=== PATIENT | female | born 1950 | race Caucasian/White ===

== ENCOUNTER 2019-04-28 23:41 | Emergency (ER) | payer BC, MEDICARE ==
--- NOTE | 2019-04-29 00:25 | EDM.PDOC ---
ED HPI GENERAL MEDICAL PROBLEM - General Chief Complaint: General Stated Complaint: JAW PAIN Time Seen by Provider: 04/29/19 00:21 Source of Information: Reports: Patient History Limitations: Reports: Altered Mental Status - History of Present Illness INITIAL COMMENTS - FREE TEXT/NARRATIVE: Halley is a 69 year old female who presents to the ED via [facility] following a fall. She reports she was walking and tripped on uneven ground outside of her home. Fall was from standing level. She reports she fell flat on her jaw and had instant jaw pain. Denies any LOC. Does report she lost 3 teeth. Has lost numerous teeth in the past as well. Reports she has an upper plate. [place] [employer] was on scene. GCS 15. Patient is not on any anticoagulants. She denies any dizziness, headache, weakness, numbness, tingling, chest pain, abdominal pain, extremity pain. She reports she has no complaints other than jaw pain. She is talking without difficulty and very restless. She does report methamphetamine use about 5 hours ago and has also been drinking alcohol. She reports she has had 2.5 drinks, but her "cups are very large." She is intoxicated and very restless. Onset: Today, Sudden Duration: Constant Location: Reports: Face (jaw) Severity: Severe Associated Symptoms: Denies: Confusion, Chest Pain, Cough, cough w sputum, Diaphoresis, Fever/Chills, Headaches, Loss of Appetite, Malaise, Nausea/Vomiting , Rash, Seizure, Shortness of Breath, Syncope, Weakness Left Jaw Pain Score (Numeric/FACES): 8 - Related Data Allergies Allergy/AdvReac Type Severity Reaction Status Date / Time Sulfa (Sulfonamide Allergy Hives Verified 04/29/19 00:20 Antibiotics) Home Meds: Home Meds Amitriptyline [Elavil] 50 mg PO BEDTIME 02/14/14 [History] Aspirin [Halfprin] 81 mg PO DAILY 02/14/14 [History] Cholecalciferol (Vitamin D3) [Vitamin D] 2,000 unit PO DAILY 02/14/14 [History] Cyclobenzaprine [Flexeril] 10 mg PO BEDTIME 02/14/14 [History] Esomeprazole [NexIUM] 40 mg PO DAILY 02/14/14 [History] Levothyroxine Sodium [Synthroid] 150 mcg PO DAILY 02/14/14 [History] Metoprolol Succinate 25 mg PO DAILY 02/14/14 [History] PARoxetine [Paxil CR] 37.5 mg PO DAILY 02/14/14 [History] atorvaSTATin [Lipitor] 40 mg PO DAILY 02/14/14 [History] Past Medical History HEENT History: Reports: Other (See Below) (Missing teeth) Cardiovascular History: Reports: CAD, High Cholesterol, Hypertension, [place] Respiratory History: Reports: COPD Gastrointestinal History: Reports: GERD : 4 Psychiatric History: Reports: Addiction, Anxiety, Depression - Past Surgical History Cardiovascular Surgical History: Reports: Carotid Stents GI Surgical History: Reports: Appendectomy, Cholecystectomy Female Surgical History: Reports: Hysterectomy Social & Family History - Family History Family Medical History: Noncontributory - Tobacco Use Smoking Status *Q: Current Every Day Smoker - Alcohol Use Alcohol Use History: Yes Alcohol Use Frequency: Binges, Daily - Recreational Drug Use Recreational Drug Use: Yes Drug Use in Last 12 Months: Yes Recreational Drug Type: Reports: Methamphetamine ED ROS GENERAL - Review of Systems Review Of Systems: ROS reveals no pertinent complaints other than HPI. Respiratory: Reports: No Symptoms Cardiovascular: Reports: No Symptoms Neurological: Reports: No Symptoms Psychiatric: Reports: Anxiety, Other (Restless) ED EXAM, GENERAL - Physical Exam Exam: See Below Exam Limited By: Intoxication General Appearance: Alert, Anxious, Moderate Distress Eye Exam: Bilateral Eye: EOMI, Normal Fundi, Normal Inspection, PERRL Ears: Normal External Exam, Normal Canal, Hearing Grossly Normal, Normal TMs Nose: Normal Inspection, Normal Mucosa, No Blood Throat/Mouth: Normal Voice, No Airway Compromise, Other (multiple missing teeth , upper plate, tenderness along bilateral mandible, crepitus noted to bilateral mandible) Head: Atraumatic, Normocephalic Neck: Normal Inspection, Supple, Non-Tender, Full Range of Motion Respiratory/Chest: No Respiratory Distress, No Accessory Muscle Use, Chest Non- Tender, Wheezing Cardiovascular: Normal Peripheral Pulses, Regular Rate, Rhythm, No Edema, No Gallop, No JVD, No Murmur, No Rub GI/Abdominal: Normal Bowel Sounds, Soft, Non-Tender, No Organomegaly, No Distention, No Abnormal Bruit, No Mass, Pelvis Stable Back Exam: Normal Inspection, Full Range of Motion, NT Neurological: Alert, Oriented, CN II-XII Intact, Normal Cognition, Normal Gait, Normal Reflexes, No Motor/Sensory Deficits Psychiatric: Anxious Skin Exam: Warm, Dry, Intact, Normal Color Course - Vital Signs Last Recorded V/S: Last Vital Signs Temp 98.3 F 04/29/19 00:21 Pulse 96 04/29/19 00:21 Resp 18 04/29/19 00:21 BP 117/67 04/29/19 00:21 Pulse Ox 97 04/29/19 00:21 - Orders/Labs/Meds Orders: Active Orders 24 hr Category Date Time Status Cervical Spine wo Cont [CT] Stat Exams 04/29/19 00:00 Taken Max Facial Sinus wo Cont [CT] Stat Exams 04/29/19 00:00 Taken Labs: Laboratory Tests 04/29/19 04/29/19 Range/Units 00:15 00:15 WBC 10.8 H (5.0-10.0) 10^3/uL RBC 3.95 L (4.00-5.50) 10^6/uL Hgb 12.4 (12.0-16.0) g/dL Hct 36.8 L (37.0-47.0) % MCV 93.2 (82.0-94.0) fL MCH 31.4 (27.0-32.0) pg MCHC 33.7 (33.0-38.0) g/dL RDW Coeff of Barbara 13.6 (11.0-15.0) % Plt Count 367 (150-400) 10^3/uL Add Manual Diff Yes Neutrophils % (Manual) 63 (35-85) % Band Neutrophils % 2 (0-5) % Lymphocytes % (Manual) 17 L (21-55) % Monocytes % (Manual) 13 H (2-12) % Eosinophils % (Manual) 4 (0-5) % Metamyelocytes % 1 % Absolute Neutrophils 7.02 H (1.80-7.00) 10^3/uL Lymphocytes # (Manual) 1.84 (1.00-4.80) 10^3/uL Monocytes # (Manual) 1.40 H (0.00-0.80) 10^3/uL Eosinophils # (Manual) 0.43 (0.00-0.45) 10^3/uL Platelet Estimate Adequate (ADEQUATE) Sodium 143 (136-145) mEq/L Potassium 3.7 (3.5-5.0) mEq/L Chloride 107 H (98-106) mEq/L Carbon Dioxide 25 (21-32) mmol/L BUN 14 (7-18) mg/dL Creatinine 0.9 (0.6-1.0) mg/dL Est Cr Clr Drug Dosing TNP Estimated GFR (MDRD) > 60 (>=60) mL/min Glucose 88 (75-99) mg/dL Calcium 8.9 (8.4-10.1) mg/dL Ethyl Alcohol 56 H (0-3) mg/dL - Radiology Interpretation Free Text/Narrative:: C-spine negative for acute changes. Bilateral impacted and displaced subcondylar mandible fractures. Multiple missing teeth. CT Results Date: 04/29/19 CT Results Time: 00:50 - Re-Assessments/Exams Free Text/Narrative Re-Assessment/Exam: Discussed CT results with patient and spouse. CT shows bilateral impacted and displaced subcondylar mandible fractures. Cspine CT negative for acute changes. C-collar removed. Consulted with [facility] ED provider Dr. Gregory, who accepted patient for transfer. Also consulted via phone with Dr. Epstein ENT. Risks and benefits of transfer discussed with patient. Risks of transfer include worsening of condition, pain, or MVA enroute. Benefits of transfer include higher level of care with oral surgery consultation. Risks of nontransfer include worsening of pain and no surgical consultation should surgery be indicated. Benefits of nontransfer include convenience and close proximity to home. Patient verbalized understanding and was agreeable to transfer. Patient will be transferred to [facility] via [facility] ALS crew. Departure - Departure Time of Disposition: 01:18 Disposition: DC/Tfer to Acute Hospital 02 Condition: Fair Clinical Impression: Methamphetamine abuse Fracture, mandible closed, subcondylar Qualifiers: Encounter type: initial encounter Laterality: unspecified laterality Qualified Code(s): S02.620A - Fracture of subcondylar process of mandible, unspecified side, initial encounter for closed fracture Alcohol intoxication Qualifiers: Complication of substance-induced condition: uncomplicated Qualified Code(s): F10.920 - Alcohol use, unspecified with intoxication, uncomplicated - Discharge Information *PRESCRIPTION DRUG MONITORING PROGRAM REVIEWED*: Not Applicable *COPY OF PRESCRIPTION DRUG MONITORING REPORT IN PATIENT HEIDI: Not Applicable Referrals: Candido Wills MD [Primary Care Provider] - Forms: ED Department Discharge - My Orders Last 24 Hours: My Active Orders 04/29/19 00:00 Cervical Spine wo Cont [CT] Stat Max Facial Sinus wo Cont [CT] Stat - Assessment/Plan Last 24 Hours: My Active Orders 04/29/19 00:00 Cervical Spine wo Cont [CT] Stat Max Facial Sinus wo Cont [CT] Stat Plan: Patient did receive 0.5 mg dilaudid enroute with EMS. Also received 1 L NS. Patient alert and oriented throughout ED stay. GCS 15. No complaints during stay other than jaw pain. She is very restless and anxious, but cooperative throughout stay. Has been talking continuously since presentation to ED. CT does reveal bilateral impacted displaced subcondylar mandible fractures. CT c spine negative for acute changes. Patient was in C-collar until results from radiology. C-collar removed without difficulty. Consulted with Dr. Gregory, ED provider at [facility], who accepted the patient for transfer. Patient will be transferred via [facility]. Patient discharged from facility in satisfactory condition.
[2019-04-29 00:29] LABS: CHLORIDE,CL 107 mEq/L (98-106); SODIUM,NA 143 mEq/L (136-145)
[2019-04-29 00:49] VITALS: BP 117/67
== END 2019-04-29 01:45 ==
LOC: CC.ED 23:41
DX: S02.622A Fracture of subcondylar process of left mandible, initial encounter for closed fracture (principal); S02.621A Fracture of subcondylar process of right mandible, initial encounter for closed fracture; F10.220 Alcohol dependence with intoxication, uncomplicated; F15.10 Other stimulant abuse, uncomplicated; I10 Essential (primary) hypertension; I25.10 Atherosclerotic heart disease of native coronary artery without angina pectoris; I25.2 Old myocardial infarction; K21.9 Gastro-esophageal reflux disease without esophagitis; F17.210 Nicotine dependence, cigarettes, uncomplicated; Z88.2 Allergy status to sulfonamides; Z79.82 Long term (current) use of aspirin; Z79.899 Other long term (current) drug therapy; Z90.49 Acquired absence of other specified parts of digestive tract; Z90.710 Acquired absence of both cervix and uterus; W01.198A Fall on same level from slipping, tripping and stumbling with subsequent striking against other object, initial encounter; Y90.2 Blood alcohol level of 40-59 mg/100 ml
CPT/HCPCS: 36415; 70486; 72125; 80048; 85025; 99285-25; G0480

== ENCOUNTER 2024-10-11 11:05 | Inpatient (IN) | payer MEDICARE, BC ==
[2024-10-11 11:24] LABS: BASOPHILS ABSOLUTE AUTO 0.07 10^3/uL (0.00-0.50); BASOPHILS PERCENT AUTO 0.7 % (0-1); EOSINOPHILS ABSOLUTE AUTO 0.04 10^3/uL (0.00-1.50); EOSINOPHILS PERCENT AUTO 0.4 % (0-6); HEMATOCRIT 46.3 % (37.0-47.0); HEMOGLOBIN 15.2 g/dL (12.0-16.0); IMMATURE GRAN ABSOLUTE AUTO 0.11 10^3/uL (0.00-0.49); LYMPHOCYTES ABSOLUTE AUTO 1.69 10^3/uL (0.60-5.00); MEAN CORPUSCULAR HEMOGLOBIN 30.5 pg (27.0-32.0); MEAN CORPUSCULAR HGB CONC 32.8 g/dL (32.0-36.0); MONOCYTES ABSOLUTE AUTO 1.25 10^3/uL (0.00-1.50); MONOCYTES PERCENT AUTO 11.8 % (0-10); NEUTROPHILS ABSOLUTE AUTO 7.41 x10^3/uL (1.80-8.00); NEUTROPHILS PERCENT AUTO 70.1 % (41-71); PLATELET COUNT,PLT 346 10^3/uL (150-400); RED BLOOD CELL COUNT 4.98 x10^6/uL (4.00-5.50); WHITE BLOOD CELL COUNT,WBC 10.6 10^3/uL (4.0-11.0)
[2024-10-11 11:38] LABS: ALANINE AMINOTRANSFERASE,ALT 19 U/L (12-78); ALBUMIN 3.7 g/dL (3.4-5.0); ALKALINE PHOSPHATASE 86 U/L (46-116); ASPARTATE AMNIOTRANSFERASE,AST 20 U/L (15-37); BILIRUBIN TOTAL 0.4 mg/dL (0.0-1.0); BLOOD UREA NITROGEN,BUN 19 mg/dL (7-18); CALCIUM 9.4 mg/dL (8.4-10.1); CARBON DIOXIDE,CO2 27 mmol/L (21-32); CHLORIDE,CL 98 mEq/L (98-106); CREATININE 1.3 mg/dL (0.6-1.0); ESTIMATED GFR 43 mL/min (>=60); ETHANOL BLOOD MEDICAL < 3 mg/dL (0-3); GLUCOSE RANDOM 122 mg/dL (75-99); MAGNESIUM 1.8 mg/dL (1.8-2.4); POTASSIUM,K 3.4 mEq/L (3.5-5.0); PROTEIN TOTAL,TP 8.3 g/dL (6.4-8.2); SODIUM,NA 135 mEq/L (136-145)
[2024-10-11 12:05] LABS: INR 0.99 (0.92-1.18); PROTHROMBIN TIME 10.4 SEC (9.3-11.3); PTT,PARTIAL THROMBOPLSTIN TIME 28.1 SEC (20.0-30.0)
[2024-10-11] MEDS: Iopamidol 755 Mg/ML 100 ML Bottle IVPUSH ONE (12:22)
[2024-10-11 14:41] LABS: AMPHETAMINES,URINE NEGATIVE (NEGATIVE); BARBITURATES,URINE NEGATIVE (NEGATIVE); BENZODIAZEPINE,URINE NEGATIVE (NEGATIVE); MDMA (ECSTASY), URINE NEGATIVE (NEGATIVE); METHADONE,URINE NEGATIVE (NEGATIVE); METHAMPHETAMINES,URINE NEGATIVE (NEGATIVE); OPIATES,URINE NEGATIVE (NEGATIVE); OXYCODONE,URINE NEGATIVE (NEGATIVE); PHENCYCLIDINE,URINE NEGATIVE (NEGATIVE); TCA,URINE POSITIVE (NEGATIVE)
[2024-10-11] MEDS ORDERED: Ondansetron 4 MG/2 ML SDV IV PRN (15:53)
[2024-10-11] MEDS ORDERED: Sodium Chloride 0.9% 10 ML Syringe FLUSH PRN (15:53)
[2024-10-11] MEDS ORDERED: Ondansetron 4 MG Tab.DIS PO PRN (15:53)
[2024-10-11] MEDS: Clopidogrel 75 MG Tab PO ONE (16:59)
[2024-10-11] MEDS: Amitriptyline 25 MG Tab PO SCH (19:28)
[2024-10-12] MEDS: Pantoprazole 40 MG Tab.CR PO SCH (06:38)
[2024-10-12] MEDS: Levothyroxine 112 MCG Tab PO SCH (06:39)
[2024-10-12] MEDS: Metoprolol Succinate 25 MG Tab.ER PO SCH (07:37)
[2024-10-12] MEDS: Cholecalciferol (Vitamin D3) 5,000 UNIT Tab PO SCH (07:38)
[2024-10-12] MEDS: Magnesium Oxide 400 MG Tab PO SCH (07:38)
[2024-10-12] MEDS: Escitalopram 10 MG Tab PO SCH (07:38)
[2024-10-12] MEDS: Clopidogrel 75 MG Tab PO SCH (07:38)
[2024-10-12] MEDS: Simvastatin 40 MG Tab PO SCH (07:38)
[2024-10-12] MEDS: Aspirin 81 MG Tab.Chew PO SCH (07:38)
[2024-10-12 07:41] LABS: BASOPHILS ABSOLUTE AUTO 0.08 10^3/uL (0.00-0.50); EOSINOPHILS ABSOLUTE AUTO 0.13 10^3/uL (0.00-1.50); EOSINOPHILS PERCENT AUTO 1.6 % (0-6); HEMATOCRIT 43.7 % (37.0-47.0); HEMOGLOBIN 14.4 g/dL (12.0-16.0); IMMATURE GRAN ABSOLUTE AUTO 0.08 10^3/uL (0.00-0.49); LYMPHOCYTES ABSOLUTE AUTO 1.56 10^3/uL (0.60-5.00); LYMPHOCYTES PERCENT AUTO 18.8 % (24-44); MEAN CORPUSCULAR HEMOGLOBIN 30.4 pg (27.0-32.0); MEAN CORPUSCULAR VOLUME 92.4 fL (83.0-97.0); MONOCYTES ABSOLUTE AUTO 1.07 10^3/uL (0.00-1.50); MONOCYTES PERCENT AUTO 12.9 % (0-10); NEUTROPHILS ABSOLUTE AUTO 5.37 x10^3/uL (1.80-8.00); NEUTROPHILS PERCENT AUTO 64.7 % (41-71); PLATELET COUNT,PLT 282 10^3/uL (150-400); RED BLOOD CELL COUNT 4.73 x10^6/uL (4.00-5.50); WHITE BLOOD CELL COUNT,WBC 8.3 10^3/uL (4.0-11.0)
[2024-10-12 08:32] LABS: ALBUMIN 3.4 g/dL (3.4-5.0); BILIRUBIN TOTAL 0.4 mg/dL (0.0-1.0); CALCIUM 9.1 mg/dL (8.4-10.1); EST CRCL DRUG DOSING (CG) 45.5 mL/min; POTASSIUM,K 3.5 mEq/L (3.5-5.0); PROTEIN TOTAL,TP 7.6 g/dL (6.4-8.2)
[2024-10-12] MEDS: Enoxaparin 40 MG/0.4 ML Syringe SUBCUT SCH (12:15)
[2024-10-13 07:30] LABS: BASOPHILS ABSOLUTE AUTO 0.05 10^3/uL (0.00-0.50); BASOPHILS PERCENT AUTO 0.7 % (0-1); EOSINOPHILS ABSOLUTE AUTO 0.14 10^3/uL (0.00-1.50); HEMATOCRIT 41.2 % (37.0-47.0); HEMOGLOBIN 13.7 g/dL (12.0-16.0); IMMATURE GRAN ABSOLUTE AUTO 0.08 10^3/uL (0.00-0.49); IMMATURE GRAN PERCENT AUTO 1.2 % (0.0-4.9); LYMPHOCYTES ABSOLUTE AUTO 1.39 10^3/uL (0.60-5.00); MEAN CORPUSCULAR HEMOGLOBIN 30.8 pg (27.0-32.0); MEAN CORPUSCULAR HGB CONC 33.3 g/dL (32.0-36.0); MEAN CORPUSCULAR VOLUME 92.6 fL (83.0-97.0); MONOCYTES ABSOLUTE AUTO 1.09 10^3/uL (0.00-1.50); MONOCYTES PERCENT AUTO 15.7 % (0-10); NEUTROPHILS ABSOLUTE AUTO 4.19 x10^3/uL (1.80-8.00); NEUTROPHILS PERCENT AUTO 60.4 % (41-71); PLATELET COUNT,PLT 293 10^3/uL (150-400); RED BLOOD CELL COUNT 4.45 x10^6/uL (4.00-5.50); WHITE BLOOD CELL COUNT,WBC 6.9 10^3/uL (4.0-11.0)
[2024-10-13 07:44] LABS: ALBUMIN 3.1 g/dL (3.4-5.0); BILIRUBIN TOTAL 0.4 mg/dL (0.0-1.0); CALCIUM 8.8 mg/dL (8.4-10.1); EST CRCL DRUG DOSING (CG) 45.5 mL/min; POTASSIUM,K 3.7 mEq/L (3.5-5.0); PROTEIN TOTAL,TP 7.1 g/dL (6.4-8.2)
[2024-10-13 08:01] VITALS: BP 106/83; PULSE 95
== END 2024-10-13 11:15 | DRG 64 ==
LOC: CC.ED 11:05 → CC.MS 15:15 → UNDOADMIN 15:33 → CC.MS 15:33
PROVIDERS: ADMIT Physician Assistant Medical; ATTEND Nurse Practitioner
DX: I63.512 Cerebral infarction due to unspecified occlusion or stenosis of left middle cerebral artery (principal); G93.6 Cerebral edema; R47.01 Aphasia; E78.00 Pure hypercholesterolemia, unspecified; I25.10 Atherosclerotic heart disease of native coronary artery without angina pectoris; J44.9 Chronic obstructive pulmonary disease, unspecified; F17.210 Nicotine dependence, cigarettes, uncomplicated; F15.90 Other stimulant use, unspecified, uncomplicated; R26.81 Unsteadiness on feet; R29.704 NIHSS score 4; K21.9 Gastro-esophageal reflux disease without esophagitis; I10 Essential (primary) hypertension; F41.9 Anxiety disorder, unspecified; F32.A Depression, unspecified; F17.200 Nicotine dependence, unspecified, uncomplicated; Z95.5 Presence of coronary angioplasty implant and graft; Z90.49 Acquired absence of other specified parts of digestive tract; Z90.710 Acquired absence of both cervix and uterus; Z79.02 Long term (current) use of antithrombotics/antiplatelets; Z88.2 Allergy status to sulfonamides; I25.2 Old myocardial infarction; Z79.82 Long term (current) use of aspirin; Z98.890 Other specified postprocedural states; Z79.890 Hormone replacement therapy; Z79.899 Other long term (current) drug therapy
CPT/HCPCS: 36415; 70450; 70496; 70498; 80053; 80305-QW; 80307; 83735; 84484; 85025; 85610; 85730; 93005; 93010; 97161-GP; 99223; 99233; 99238; 99285; A9270-GY; J1650; Q9967